=== PATIENT | male | born 1930 | race Caucasian/White ===

== ENCOUNTER 2017-01-30 03:42 | Emergency (ER) | payer MEDICARE, BC ==
[~2017-01-30 03:42] MED LIST: ATORVASTATIN CA20 M1 PO; BABY ASPIRIN81 MG PO; BACTRIM DS TAB1 EAC2 PO; BISOPROLOL FUMAR5 MG PO; CALCIUM 600 MG1 EACH PO; CALCIUM600 MG PO; CENTRUM MULTIV1 EACH PO; CLARITIN10 M8 PO; CPAP; FOSINOPRIL SODI20 M1 PO; FUROSEMIDE40 M1 PO; IPRAT-ALBUT 0.5-3 ML IH; K-DUR20 MEQ PO; LASIX20 M1 PO; LOPRESSOR25 MG/TA2 PO; NORVASC5 M2 PO; PLAVIX75 M1 PO; PRADAXA150 M1 PO; PRADAXA150 MG PO; PREDNISONE20 M1 PO; PROTONIX40 M2 PO; PROVENTIL HFA6.7 G1 IH; SIMVASTATIN40 MG PO; SOTALOL HCL80 MG PO; SOTALOL80 M1 PO; SPIRIVA18 MC1 IH; SPIRIVA18 MCG IH; SYNTHROID50 MC1 PO; TRIAMTERENE-HCT1 CAP PO; XOPENEX HFA15 GM IH
[2017-01-30 04:32] LABS: BASO % 0.9 % (0-2); BASO ABSOLUTE COUNT 0.1 tho/cmm (0.0-0.2); EOSINOPHIL ABSOLUTE COUNT 0.3 tho/cmm (0.0-0.7); HCT-HEMATOCRIT 39.6 % (36.0-53.5); IMMATURE GRANULOCYTES ABSOLUTE 0.01 tho/cmm (0-0.03); IMMATURE GRANULOCYTES PERCENT 0.2 % (0-0.3); LYMPH % 18.4 % (20-45); MCH (MEAN CORPUSCULAR HGB) 29.7 pg (28.0-32.0); MCHC MEAN CORPUSCULAR HGB CONC 32.8 % (32.0-36.0); MCV (MEAN CELL VOLUME) 90.6 fl (82.0-96.0); MEAN PLATELET VOLUME 9.7 cmc (9.4-12.4); MONO % 15.7 % (0-12); MONOCYTE ABSOLUTE COUNT 0.9 tho/cmm (0.0-1.2); NEUTROPHIL ABSOLUTE COUNT 3.3 tho/cmm (1.6-8.0); NEUTROPHIL-AUTOMATED 3.3 tho/cmm (1.6-8.0); NEUTROPHILS % 58.8 % (40-80); PLATELET COUNT 190 tho/cmm (150-450); RED BLOOD COUNT 4.37 mil/cmm (4.40-5.70); RED CELL DISTRIBUTION WIDTH 13.3 % (12.4-16.4); WHITE BLOOD COUNT 5.7 tho/cmm (4.0-10.0)
[2017-01-30 04:45] LABS: BLOOD UREA NITROGEN 17 mg/dl (6-24); CALCIUM 8.8 mg/dl (8.5-10.5); CARBON DIOXIDE-VENOUS 27 mmol/L (22-32); CHLORIDE 107 mmol/l (96-110); CREATININE 0.91 mg/dl (0.60-1.30); GLUCOSE 106 mg/dL (70-110); SODIUM 139 mmol/L (135-145); eGFR VALUE FOR BLACK 89 mL/Min
[2017-01-30 04:53] LABS: ANION GAP 9 mmol/L (0-20); POTASSIUM 4.4 mmol/L (3.7-5.1)
[2017-01-30] MEDS ORDERED: ZITHROMAX250 M1 PO (05:18)
[2017-01-30] MEDS ORDERED: PREDNISONE20 M1 PO (05:18)
== END 2017-01-30 05:33 ==
LOC: EDMED 03:42
PROVIDERS: Emergency Medicine
DX: J44.1 Chronic obstructive pulmonary disease with (acute) exacerbation (principal); I25.10 Atherosclerotic heart disease of native coronary artery without angina pectoris; I48.91 Unspecified atrial fibrillation; I10 Essential (primary) hypertension; E78.5 Hyperlipidemia, unspecified; E03.9 Hypothyroidism, unspecified; K21.9 Gastro-esophageal reflux disease without esophagitis; Z95.5 Presence of coronary angioplasty implant and graft; Z79.890 Hormone replacement therapy; Z79.51 Long term (current) use of inhaled steroids; Z79.899 Other long term (current) drug therapy; Z87.891 Personal history of nicotine dependence
CPT/HCPCS: J2930